=== PATIENT | male | born 1955 | race Caucasian/White ===

== ENCOUNTER 2017-07-20 06:51 | Day surgery (SDC) | payer BC ==
--- NOTE | 2017-07-10 15:20 | HP ---
HISTORY AND PHYSICAL: DATE OF SURGERY: 07/20/17 - [facility] SURGEON: Chelly Godinez MD * (DICTATED BY GRISEL MOY) PROCEDURE: Left knee arthroscopy with partial medial meniscectomy, possible chondroplasty, possible synovectomy. CHIEF COMPLAINT: Left knee pain. HISTORY OF PRESENT ILLNESS: Mr. Cardenas is a 61-year-old gentleman with complaints of left knee pain. An MRI shows a medial meniscus tear and he has elected to proceed with surgery, which is scheduled for 07/20/17. PAST MEDICAL HISTORY: 1. Hypertension. 2. High cholesterol. PAST SURGICAL HISTORY: Bilateral carpal tunnel release. CURRENT MEDICATIONS: 1. Ramipril. 2. . ALLERGIES: None. FAMILY HISTORY: Denies. SOCIAL HISTORY: This 61-year-old gentleman lives with his . He is self- employed. He does not smoke, use drugs or alcohol. REVIEW OF SYSTEMS: A complete 14-point review of systems was reviewed with the patient, was all negative or noncontributory. PHYSICAL EXAMINATION GENERAL: He is well developed, well nourished, in no acute distress. VITAL SIGNS: He stands 6 feet 3 inches tall, weighs 260 pounds. His blood pressure is 138/84, his heart rate is 68. HEENT: Normocephalic, atraumatic. NECK: Supple. No palpable lymph nodes. PULMONARY: Lungs are clear to auscultation bilaterally. CARDIO: Regular rate and rhythm. Strong S1, S2. ABDOMEN: Soft, nontender, nondistended. NEUROLOGICAL: He is alert and oriented x3. MUSCULOSKELETAL: Left lower extremity, the skin is intact. There are no open wounds or abrasions. There is a moderate effusion in the left knee. Some tenderness over the medial joint line. Positive Apley's and Yogi's. Negative Antonia's. 5 to 130 degrees of flexion. He is distally neurovascularly intact. ASSESSMENT AND PLAN: Mr. Cardenas is a 61-year-old gentleman with complaints of left knee pain, and MRI shows a medial meniscus tear. He has elected to proceed with left knee arthroscopy with partial medial meniscectomy, possible chondroplasty, possible synovectomy. Surgery is scheduled for 07/20/[address] Godinez has discussed the risks and benefits of the surgery at today's visit and all of his questions were answered. Follow up with Dr. Godinez in 2 weeks after the surgery. GRISEL MOY [id number]/[facility] #: [id number] MTDTeressa
[~2017-07-20 06:51] MED LIST: Buffered Lidocaine 0.9% SYRIN* 5 ML/SYR SYRINGE INTRADERM ONE; Famotidine IV* 10 MG/ML 2 ML (20 mg) IV ONE
[2017-07-20] MEDS ORDERED: EPINEPHRINE 1 MG/ML 1 ML VIAL ONE (07:04)
[2017-07-20] MEDS ORDERED: methylPREDNISolone ACETATE 80* 80 MG/ML 1 ML VIAL ONE (07:04)
[2017-07-20] MEDS ORDERED: Bupivacaine 0.25% SDV* 30 ML ONE (07:07)
[2017-07-20] MEDS ORDERED: Buffered Lidocaine 0.9% SYRIN* 5 ML/SYR SYRINGE ONE (07:18)
[2017-07-20] MEDS ORDERED: ceFAZolin 2 GM PREMIX (*) 2 GM/50 ML BAG IVPB ONE (07:18)
[2017-07-20] MEDS ORDERED: Famotidine IV* 10 MG/ML 2 ML (20 mg) ONE (07:18)
[2017-07-20] MEDS ORDERED: Bupivacaine 0.5% SDV PF* 10-30ML VIAL ONE (07:38)
[2017-07-20] MEDS ORDERED: fentaNYL* 50 MCG/ML 2 ML VIAL (100 MCG VIAL) ONE ×2 (07:40→08:52)
[2017-07-20] MEDS ORDERED: Midazolam* 1 MG/ML 2 ML VIAL (2 MG) ONE ×2 (07:40)
[2017-07-20] MEDS ORDERED: Dexamethasone IV* 4 MG/ML 1 ML (4 MG) ONE (07:45)
[2017-07-20] MEDS ORDERED: Lidocaine 2% PF * 5 ML VIAL ONE (07:45)
[2017-07-20] MEDS ORDERED: DiMENhydriNATE IV* 50 MG/ML VIAL ONE (07:45)
[2017-07-20] MEDS ORDERED: Propofol* 10 MG/ML 20 ML BTL IV PUSH ONE (07:45)
[2017-07-20] MEDS ORDERED: Ondansetron INJ* 2 MG/ML VIAL ONE (07:45)
[2017-07-20] MEDS ORDERED: Ketorolac INJ* 30 MG/ML 1 ML VIAL ONE (07:45)
[2017-07-20] MEDS ORDERED: oxyCODONE TAB* 5 MG TAB PO PRN (07:54)
[2017-07-20] MEDS ORDERED: HYDROmorphone INJ* 1 MG/ML CARPUJECT SYRINGE IV PRN (07:54)
[2017-07-20] MEDS ORDERED: Acetaminophen TAB* 325 MG PO PRN (07:54)
[2017-07-20] MEDS ORDERED: DiMENhydriNATE IV* 50 MG/ML VIAL IV PUSH PRN (07:54)
[2017-07-20 10:19] VITALS: BP 148/91
[2017-07-20] MEDS ORDERED: Ramipril CAP* 10 MG PO ONE (10:35)
--- NOTE | 2017-07-21 03:58 | OP ---
OPERATIVE REPORT: DATE OF OPERATION: 07/20/17 DATE OF : 59 SURGEON: Chelly Godinez MD DIVIDEND DEPOSIT VOUCHER CLERK: GRISEL Serrano Ms. did help throughout the procedure with preparation of the leg, wound retraction, manipul ation of the knee, and wound closure. ANESTHESIOLOGIST: Snehal Deleon MD ANESTHESIA: General. PRE-OP DIAGNOSIS: Left knee medial meniscal tear. POST-OP DIAGNOSES: Left knee medial meniscal tear, lateral meniscal tear, moderate osteoarthritis in tricompartmental fashion. OPERATIVE PROCEDURE: Left knee arthroscopy with partial medial meniscectomy and partial lateral meni scectomy. INDICATIONS: Mr. Cardenas is a 61-year-old gentleman, who had a twisting injury to this left knee many months ago while getting off a tractor. He developed mechanical symptoms along the medial joint line . He failed conservative treatment. MRI confirmed a medial meniscal tear. He elected to undergo lef t knee arthroscopy with partial meniscectomy due to continued pain and decreased quality of life. Inf ormed consent was obtained from the patient. He understood the risks of surgery included but were no t limited to bleeding, infection, damage to nearby structures, continued pain, need for further surge ry, retear of the meniscus, progression of arthritis, progression of arthritic pain, stroke, heart at tack, blood clot, and . He wished to proceed. ESTIMATED BLOOD LOSS: Less than 25 cc. COMPLICATIONS: None. SPECIMENS: None. INTRAOPERATIVE FINDINGS: Intraoperatively, the patient was noted to have grade 2 and 3 Outerbridge c artilage changes in all 3 compartments. He had some minimal and deeper fissuring in the patellofemor al, medial, and lateral compartments. He was found to have an anteriorly displaced parrot beak-type tear along the posterior medial meniscus. He was also found to have a radial type tear of the guinea pig breeder ior aspect of the lateral meniscus. Both of these involved the white-red zone. DESCRIPTION OF PROCEDURE: Mr. Cardenas was identified in the preanesthesia unit. His left lower extrem ity was marked as the correct operative side. Informed consent was signed and placed in the chart. The patient was taken to the operating room and placed under general anesthesia. Left lower extremit y was prepped and draped in the usual sterile fashion. Preop time-out was made to correctly identify the patient's side and site. Appropriate perioperative antibiotics were given within 1 hour of inci cheryl. A 0.5-cm anterolateral portal incision was made with a 15 blade and carried down through the capsule. Trocar was introduced. As soon as the light and water sources were turned on, there was a good imm ediate visualization of the suprapatellar pouch. A tour was performed. Suprapatellar pouch had no o bvious abnormality. Patellofemoral compartment showed some grade 2 and 3 Outerbridge cartilage carbajal es with fissuring. Medial gutters showed no plica or loose body. Medial compartment showed some fiss uring of the medial femoral condyle cartilage. An anteriorly displaced posteromedial meniscal tear wa s noted. ACL and PCL appeared to be intact. The knee was placed in the figure-of-4 position. Some grade 2 and 3 Outerbridge cartilage changes were also noted along the lateral femoral condyle cartila ge. There was a radial tear along the posterior aspect of the lateral meniscus. Lateral gutters eliazar wed no obvious abnormality. Under direct visualization, a medial portal incision was made with a 15 blade. A probe was introduce d. A second tour of the knee joint was performed. Posteromedial meniscus tear was a parrot beak-type tear with frayed edge and anterior displacement. This involved the white-red zone and red-red zone. The lateral meniscus tear was a radial type tear along the posterolateral meniscus involving the wh ite-red zone. Shaver and radiofrequency ablation wand were used to remove some anterior soft tissue to improve visualization. Straight biter and shaver were used to perform partial medial meniscectomy until a smooth border was obtained. Radiofrequency ablation wand was used to further smooth the edg e of the medial meniscus posteriorly. Smooth meniscal border was obtained. A probe was used to ensu re there were no additional tears here. Next, the straight biter and shaver were used to perform par tial lateral meniscectomy until a smooth border was obtained. Probe was used to ensure there was no further tearing. The knee was copiously irrigated with sterile saline. All instruments were carefully removed. Incis ions were closed using 3-0 nylon suture. Intraarticular injection of 80 mg Depo-Medrol and 6 cc of 0 .25% Marcaine was placed in the knee joint. The patient's incisions were covered with Xeroform, 4x4, and Webril. Fortino wrap and cold pack were placed over this. The patient's anesthesia was reversed wi thout difficulty. He was taken to the PACU in stable condition. Intended weightbearing will be weig htbearing as tolerated. Intended DVT prophylaxis will be aspirin. He will follow up in 2 weeks' elías e for followup. [id number]/[facility] #: [id number]
== END 2017-07-20 10:50 | disposition home or self-care (01) ==
LOC: OR 06:51
PROVIDERS: ATTEND Orthopaedic Surgery Adult Reconstructive Orthopaedic Surgery
DX: S83.242A Other tear of medial meniscus, current injury, left knee, initial encounter (principal); S83.282A Other tear of lateral meniscus, current injury, left knee, initial encounter; X50.0XXA Overexertion from strenuous movement or load, initial encounter; Y92.79 Other farm location as the place of occurrence of the external cause; I10 Essential (primary) hypertension; E78.00 Pure hypercholesterolemia, unspecified; M19.90 Unspecified osteoarthritis, unspecified site
CPT/HCPCS: J0690; J1040; J1100; J1240; J1885; J2250; J2405; J2704; J3010

== ENCOUNTER 2018-10-04 06:02 | Day surgery (SDC) | payer BC ==
--- NOTE | 2018-10-01 10:46 | HP ---
AMENDED REPORT NOW INCLUDES COSIGNER DESIGNATION HISTORY AND PHYSICAL: DATE OF SURGERY: 10/04/18 DATE OF OFFICE VISIT: 10/01/18 SURGEON: Chelly Godinez MD.* (DICTATED BY GRISEL MOY) PROCEDURES: Left knee arthroscopy with partial meniscectomy, possible chondroplasty, possible synovectomy. CHIEF COMPLAINT: Left knee pain. HISTORY OF PRESENT ILLNESS: Mr. Cardenas is a 63-year-old gentleman with continued complaints of left knee pain. An MRI confirms a meniscus tear and he has elected to proceed with surgery. PAST MEDICAL HISTORY: Hypertension, high cholesterol. PAST SURGICAL HISTORY: Bilateral carpal tunnel release and left knee arthroscopy. CURRENT MEDICATIONS: 1. 25 mg a day. 2. Ramipril 20 mg a day. ALLERGIES: No known drug allergies. FAMILY HISTORY: Denies. SOCIAL HISTORY: This is a 63-year-old gentleman who lives with his . He does not smoke or use drugs or alcohol. REVIEW OF SYSTEMS: A complete 14-point review of systems reviewed with the patient, it was all negative and noncontributory. He denies history of DVT, PE , hepatitis, HIV or anesthesia problems. PHYSICAL EXAMINATION GENERAL: He is well developed, well nourished in no acute distress. VITAL SIGNS: He stands 6 feet 3 inches tall, weighs 271 pounds. His blood pressure is 168/90, his heart rate is 68. HEENT: Normocephalic, atraumatic. NECK: Supple. No palpable lymph nodes. PULMONARY: The lungs are clear to auscultation bilaterally. CARDIO: Regular rate and rhythm. Strong S1, S2. ABDOMEN: Soft, nontender, nondistended. NEUROLOGICAL: He is alert and oriented x3. MUSCULOSKELETAL: Left lower extremity: The skin is intact. There are no open wounds or abrasions. There is a moderate joint effusion of the left knee, tenderness over the medial joint line. Positive Apley's, positive Yogi's. His calf is soft and nontender. Range of motion is 5 to 125 degrees of flexion. He is able to dorsiflex and plantar flex and has 2+ dorsalis pedis pulses. ASSESSMENT AND PLAN: Mr. Cardenas is a 63-year-old gentleman with complaints of left knee pain. An MRI confirms a medial meniscus tear. He has elected to proceed with left knee arthroscopy with partial meniscectomy, possible chondroplasty, possible synovectomy. The surgery is scheduled for 10/04/[address] Godinez discussed the risks and benefits of the surgery at today's visit and all of his questions were answered. He will follow up with Dr. Godinez in 2 weeks after the surgery. GRISEL MOY [id number]/[facility] #: [id number] MTDD
[~2018-10-04 06:02] MED LIST changes: -Buffered Lidocaine 0.9% SYRIN* 5 ML/SYR SYRINGE INTRADERM ONE; +Buffered Lidocaine 1% SYRIN* 1 ML/SYRINGE INTRADERM ONE; +Dexamethasone IV* 4 MG/ML 1 ML (4 MG) IV SLOW PU ONE; +Lactated Ringers 1000 ML Bag* 1,000 ML IV SCH
[2018-10-04] MEDS ORDERED: methylPREDNISolone ACETATE 80* 80 MG/ML 1 ML VIAL ONE (06:41)
[2018-10-04] MEDS ORDERED: Bupivacaine 0.5%* 50 ML VIAL ONE (06:42)
[2018-10-04] MEDS ORDERED: EPINEPHRINE 1 MG/ML 1 ML VIAL ONE (06:42)
[2018-10-04] MEDS ORDERED: Famotidine IV* 10 MG/ML 2 ML (20 mg) ONE (06:43)
[2018-10-04] MEDS ORDERED: ceFAZolin 2 GM PREMIX in ORs 2 GM/50 ML BAG IVPB ONE (06:43)
[2018-10-04] MEDS ORDERED: Dexamethasone IV* 4 MG/ML 1 ML (4 MG) ONE (06:43)
[2018-10-04] MEDS ORDERED: Midazolam* 1 MG/ML 2 ML VIAL (2 MG) ONE (07:02)
[2018-10-04] MEDS ORDERED: fentaNYL* 50 MCG/ML 2 ML VIAL (100 MCG VIAL) ONE ×2 (07:02→07:57)
[2018-10-04] MEDS ORDERED: Ketorolac INJ* 30 MG/ML 1 ML VIAL ONE (07:57)
[2018-10-04] MEDS ORDERED: Lidocaine 2% PF * 5 ML VIAL ONE (07:57)
[2018-10-04] MEDS ORDERED: Propofol* 10 MG/ML 20 ML BTL ONE (07:57)
[2018-10-04] MEDS ORDERED: Ondansetron INJ* 2 MG/ML VIAL ONE (07:57)
[2018-10-04] MEDS ORDERED: DiMENhydriNATE IV* 50 MG/ML VIAL IV PUSH PRN (08:14)
[2018-10-04] MEDS ORDERED: fentaNYL* 50 MCG/ML 2 ML VIAL (100 MCG VIAL) IV PRN (08:14)
[2018-10-04] MEDS ORDERED: Naloxone* 0.4 MG/ML 1 ML VIAL IV PRN (08:14)
[2018-10-04] MEDS ORDERED: oxyCODONE/Acetamin 5/325 MG* TAB ONE (09:32)
[2018-10-04 10:17] VITALS: BP 150/95
--- NOTE | 2018-10-05 01:30 | OP ---
OPERATIVE REPORT: DATE OF OPERATION: 10/04/18 DATE OF : 59 SURGEON: Chelly Godinez MD. FORGER HELPER: GRISEL Lundberg. Ms. Cooney did help throughout the procedure with preparation of the l eg, wound retraction, manipulation of the knee, and wound closure. CHIEF COMPLAINT: Left knee pain. ANESTHESIOLOGIST: Dr. Etienne. ANESTHESIA: General. PRE-OP DIAGNOSES: Left knee medial and lateral meniscal tears, moderate osteoarthritis. POST-OP DIAGNOSES: Left knee medial and lateral meniscal tears, moderate osteoarthritis. OPERATIVE PROCEDURES: Left knee arthroscopy with partial medial meniscectomy, partial lateral menisc ectomy, and anterior synovectomy. ESTIMATED BLOOD LOSS: Less than 25 cc. COMPLICATIONS: None. SPECIMEN: None. BRIEF HISTORY/INDICATIONS: Mr. Cardenas is a 63-year-old gentleman who twisted his knee in May. Since then, he has had catching and popping along his medial and lateral joint lines. H e failed conservative treatment with steroid injection and rest. MRI confirmed medial and lateral me niscal tears. The patient elected to undergo left knee arthroscopy with partial meniscectomies and p ossible chondroplasty, possible synovectomy. Informed consent was obtained from the patient. He und erstood the risks of surgery included but were not limited to bleeding, infection, damage to nearby s tructures, continued pain, need for further surgery, re-tear of the meniscus, progression of arthriti s, stroke, heart attack, blood clot and ; he wished to proceed. INTRAOPERATIVE FINDINGS: Intraoperatively, the patient was noted to have grade 2 and 3 Outerbridge c artilage changes in the medial and patellofemoral compartment. He had a radial tear in the posterior medial meniscus. Also radial tear in the posterolateral meniscus and radial tear in the midportion o f the lateral meniscus. He had a significant amount of the anterior synovitis. DESCRIPTION OF PROCEDURE: Mr. Cardenas was identified in the preanesthesia unit. His left lower extrem ity was marked as the correct operative side. Informed consent was signed and placed in the chart. The patient was taken to the operating room and placed under general anesthesia. Left lower extremit y was prepped and draped in the usual sterile fashion. Preop time-out was made to correctly identify the patient, side, and site. Appropriate perioperative antibiotics were given within 1 hour of inci cheryl. A 0.5 cm anterolateral portal incision was made with a #10 blade and carried down through the capsule . Trocar was introduced. As soon as the light and water sources were turned on, there was immediate visualization of the suprapatellar pouch. A tour of the knee joint was performed. Suprapatellar pouch had no obvious abnormalities. Patellofemoral compartment had some grade 2 and 3 Outerbridge cartilage changes. Medial compartment had no loose body or plica. The anterior joint li ne had significant amount of synovitis. Medial compartment showed some grade 2 and 3 Outerbridge cart ilage changes. There was a visible posterior medial meniscal tear. ACL and PCL appeared to be intac t. The knee was placed in a ipkiiv-dv-geia position. Lateral meniscus tear was visible along the pos terolateral portion as well as the midportion. Lateral compartment had minimal degenerative changes. Lateral gutter had no loose body or plica. Under direct visualization, a medial portal incision was made with a #15 blade. A probe was introduc ed and a second tour of the knee joint was performed. No additional findings were noted. Radiofrequency ablation wand and shaver were used to perform anterior synovectomy. Inflamed synovium was carefully and conservatively removed. Next, straight biter and shaver were used to perform parti al medial meniscectomy. This was a radial- type tear in the posteromedial portion of the medial meni scus involving the white- red zone mainly. The partial meniscectomy was successful and there was a s mooth border of the medial meniscus. Further probing of the medial meniscus showed no additional tea rs. The knee was placed in a [id number] position. Straight biter and shaver were used to perform par tial lateral meniscectomy in the white-red zone of the posterior horn and the white-red zone of the m idportion of the lateral meniscus. The radial tears were carefully removed. Smooth border of the la teral meniscus was obtained. Further probing of the meniscus showed no additional tears. All instruments were removed. The incisions were closed using intraoperative 3-0 nylon suture. Intr aarticular injection of 80 mg Depo-Medrol and 6 cc of 0.5% ropivacaine was placed in the knee joint. The patient's incisions were covered with Xeroform, 4x4, Webril. Fortino wrap and cold pack were placed over this. The patient's anesthesia was reversed without difficulty. He was taken to the PACU in s table condition. Intended weightbearing will be weightbearing as tolerated. Intended DVT prophylaxis will be aspirin. [id number]/[facility] #: [id number]
== END 2018-10-04 10:29 | disposition home or self-care (01) ==
LOC: OR 06:02
PROVIDERS: ATTEND Orthopaedic Surgery Adult Reconstructive Orthopaedic Surgery
DX: S83.242A Other tear of medial meniscus, current injury, left knee, initial encounter (principal); S83.282A Other tear of lateral meniscus, current injury, left knee, initial encounter; X50.0XXA Overexertion from strenuous movement or load, initial encounter; Y93.89 Activity, other specified; Y92.89 Other specified places as the place of occurrence of the external cause; M17.12 Unilateral primary osteoarthritis, left knee; I10 Essential (primary) hypertension; E78.00 Pure hypercholesterolemia, unspecified
CPT/HCPCS: A9270-GY; J0690; J1040; J1100; J1885; J2250; J2405; J2704; J3010